=== PATIENT | female | born 2000 | race Hispanic/Latino ===

== ENCOUNTER 2020-10-11 12:46 | Emergency (ER) | payer OTHER ==
--- NOTE | 2020-10-11 13:22 | ER ---
Nurse's Notes [facility] Name: Noreen Lang Age: 20 yrs Sex: Female : 2000 Arrival Date: 10/11/2020 Time: 12:51 Bed 25 Private MD: Diagnosis: Bitten or stung by nonvenomous insect and other nonvenomous arthropods Presentation: 10/11 13:06 Chief complaint: Patient states: "while I was sleeping I think I was bit by a spider on jd3 my right cheek and now it is swelling.". Coronavirus screen: At this time, the client does not indicate any symptoms associated with coronavirus-19. Ebola Screen: Patient negative for fever greater than or equal to 101.5 degrees Fahrenheit, and additional compatible Ebola Virus Disease symptoms. Initial Sepsis Screen: Does the patient meet any 2 criteria? No. Patient's initial sepsis screen is negative. Does the patient have a suspected source of infection? No. Patient's initial sepsis screen is negative. Risk Assessment: Do you want to hurt yourself or someone else? Patient reports no desire to harm self or others. Onset of symptoms Onset of symptoms was October 11, 2020. 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 - Social history:: Smoking status: Patient denies any tobacco usage or history of. Screenin:21 Abuse screen: Denies threats or abuse. Nutritional screening: No deficits noted. vg1 Tuberculosis screening: No symptoms or risk factors identified. Fall Risk No fall in past 12 months (0 pts). No secondary diagnosis (0 pts). No IV (0 pts). Ambulatory Aid- None/Bed Rest/Nurse Assist (0 pts). Gait- Normal/Bed Rest/Wheelchair (0 pts) Mental Status- Oriented to own ability (0 pts). Total Maxwell Fall Scale indicates No Risk (0-24 pts). Assessment: 13:20 General: Appears in no apparent distress. comfortable, Behavior is calm, cooperative. vg1 Pain: Complains of pain in right cheek Pain currently is 5 out of 10 on a pain scale. Pain began 30 min ago. Neuro: Level of Consciousness is awake, alert, obeys commands, Oriented to person, place, time, situation. Cardiovascular: Patient's skin is warm and dry. Respiratory: Airway is patent Respiratory effort is even, unlabored, Denies shortness of breath. GI: No signs and/or symptoms were reported involving the gastrointestinal system. : No signs and/or symptoms were reported regarding the genitourinary system. EENT: No signs and/or symptoms were reported regarding the EENT system. Derm: Skin is intact, is healthy with good turgor. Musculoskeletal: Swelling present in right cheek. Vital Signs: 13:07 BP 132 / 97; Pulse 89; Resp 17 S; Temp 97.2(TE); Pulse Ox 99% on R/A; Weight 45.36 kg jd3 (R); Height 4 ft. 11 in. (149.86 cm) (R); Pain 5/10; 13:07 Body Mass Index 20.20 (45.36 kg, 149.86 cm) jd3 ED Course: 12:51 Patient arrived in ED. mr 13:07 Triage completed. jd3 13:08 Arm band placed on. jd3 13:12 Lachelle Muñoz FNP-C is [facility]. kb 13:12 Ashvin Bae MD is Attending Physician. kb 13:16 Manasa Hastings, RN is Primary Nurse. vg1 13:22 Patient has correct armband on for positive identification. Bed in low position. Call vg1 light in reach. 13:22 No provider procedures requiring assistance completed. Patient did not have IV access vg1 during this emergency room visit. Administered Medications: 13:28 Drug: Benadryl (diphenhydrAMINE) 25 mg Route: PO; vg1 13:28 Follow up: Response: Medication administered at discharge. vg1 Outcome: 13:22 Discharge ordered by . kb 13:30 Discharged to home ambulatory, with family. vg1 13:30 Condition: stable 13:30 Discharge instructions given to patient, Instructed on discharge instructions, follow up and referral plans. Demonstrated understanding of instructions, follow-up care. 13:30 Patient left the ED. vg1 Signatures: Lachelle Muñoz, NICOLETTE KERNS-Dianne Ramirez Smith, Maurice, RN RN jd3 Manasa Hastings RN RN vg1
--- NOTE | 2020-10-11 13:22 | EDPHYS ---
Physician Documentation [facility] Name: Noreen Lang Age: 20 yrs Sex: Female : 2000 Arrival Date: 10/11/2020 Time: 12:51 Bed 25 Private MD: ED Physician Ashvin Bae HPI: 10/11 17:02 This 20 yrs old Female presents to ER via Ambulatory with complaints of Facial kb Swelling. 17:02 the patient presents with a swollen area of the right cheek. Description: swollen. kb Onset: The symptoms/episode began/occurred just prior to arrival. Possible cause(s): spider bite. Associated signs and symptoms: Pertinent positives: swelling, burning. Modifying factors: the symptoms are alleviated by nothing, the symptoms are aggravated by nothing. Severity of symptoms: At their worst the symptoms were very mild, in the emergency department the symptoms are unchanged. The patient has not experienced similar symptoms in the past. The patient has not recently seen a physician. 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 States she brushed it off but thinks it bit her because she is having swelling and burning to the cheek. 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 - Social history:: Smoking status: Patient denies any tobacco usage or history of. ROS: 17:03 Constitutional: Negative for fever, chills, and weight loss. kb 17:03 Skin: Positive for swelling, of the right cheek, burning. 17:03 All other systems are negative. Exam: 17:03 Constitutional: This is a well developed, well nourished patient who is awake, alert, kb and in no acute distress. Head/Face: Normocephalic, atraumatic. ENT: Moist Mucous membranes Cardiovascular: Regular rate and rhythm with a normal S1 and S2. No gallops, murmurs, or rubs. No pulse deficits. Respiratory: Respirations even and unlabored. No increased work of breathing, no retractions or nasal flaring. Abdomen/GI: Soft, non-tender. No distention Skin: Warm, dry with normal turgor. Normal color. MS/ Extremity: Pulses equal, no cyanosis. Neurovascular intact. Full, normal range of motion. Neuro: Awake and alert, GCS 15, oriented to person, place, time, and situation. Moves all extremities. Normal gait. Psych: Awake, alert, with orientation to person, place and time. Behavior, mood, and affect are within normal limits. Vital Signs: 13:07 BP 132 / 97; Pulse 89; Resp 17 S; Temp 97.2(TE); Pulse Ox 99% on R/A; Weight 45.36 kg jd3 (R); Height 4 ft. 11 in. (149.86 cm) (R); Pain 5/10; 13:07 Body Mass Index 20.20 (45.36 kg, 149.86 cm) jd3 MDM: 13:12 Patient medically screened. kb 17:01 Data reviewed: vital signs, nurses notes. Data interpreted: Pulse oximetry: on room air kb is 99 %. Interpretation: normal. Counseling: I had a detailed discussion with the patient and/or guardian regarding: the historical points, exam findings, and any diagnostic results supporting the discharge/admit diagnosis, the need for outpatient follow up, a family practitioner, to return to the emergency department if symptoms worsen or persist or if there are any questions or concerns that arise at home. 17:04 ED course: No swelling, redness, puncture, warmth, drainage noted to right cheek. kb Administered Medications: 13:28 Drug: Benadryl (diphenhydrAMINE) 25 mg Route: PO; vg1 13:28 Follow up: Response: Medication administered at discharge. vg1 Disposition: 17:25 Co-signature as Attending Physician, Ashvin Bae MD. rn Disposition: 10/11/20 13:22 Discharged to Home. Impression: Bitten or stung by nonvenomous insect and other nonvenomous arthropods. - Condition is Stable. - Discharge Instructions: Spider Bite, [id number]. - Medication Reconciliation Form, Thank You Letter, Antibiotic Education, Prescription Opioid Use, Family Work Release form. - Follow up: Emergency Department; When: As needed; Reason: Worsening of condition. Follow up: Private Physician; When: 2 - 3 days; Reason: Recheck today's complaints, Continuance of care, Re-evaluation by your physician. Signatures: Lachelle Muñoz, LUIS F-C SOFTWARE TEST AND VALIDATION ENGINEER-Ashvin Johnson MD MD rn Davies, Jonathon RN RN jd3 Maansa Hastings RN RN vg1 Corrections: (The following items were deleted from the chart) 13:30 13:22 10/11/2020 13:22 Discharged to Home. Impression: Bitten or stung by nonvenomous vg1 insect and other nonvenomous arthropods. Condition is Stable. Forms are Medication Reconciliation Form, Thank You Letter, Antibiotic Education, Prescription Opioid Use. Follow up: Emergency Department; When: As needed; Reason: Worsening of condition. Follow up: Private Physician; When: 2 - 3 days; Reason: Recheck today's complaints, Continuance of care, Re-evaluation by your physician. kb
[2020-10-11 13:42] VITALS: BP 132/97; TEMP 97.2; O2SAT 99
[2020-10-11] MEDS ORDERED: DIPHENHYDRAMINE 25 MG TAB/CAP ONE (13:47)
== END 2020-10-11 13:30 | disposition home or self-care (01) ==
LOC: ER 12:46
DX: S00.86XA Insect bite (nonvenomous) of other part of head, initial encounter (principal)
CPT/HCPCS: 99283